=== PATIENT | male | born 1980 | race Caucasian/White ===

== ENCOUNTER 2017-03-23 14:37 | Emergency (ER) | payer OTHER ==
[2017-03-23] MEDS: ASPIRIN 81 MG CHEW TAB PO ONE (15:00)
[2017-03-23 15:03] LABS: EOSINOPHILS % 4.2 % (0.0-6.8); MEAN CORPUSCULAR VOLUME 92.9 fl (80.0-100.0); MONOCYTES % 6.3 % (0.0-11.0); NEUTROPHILS # 3.7 # k/uL (1.4-7.7)
--- NOTE | 2017-03-23 15:14 | Diagnostic Imaging Report ---
EDGAR ALANIZ [facility] [address] [facility] [address] [address] Report Submission Date: Mar 23, 2017 3:06:34 PM CDT Patient Study Name: SELVIN CR Date: Mar 23, 2017 2:50:46 PM CDT Modality Type: CR Gender: M Description: CHEST : 78 Institution: [facility] Physician: EDGAR ALANIZ Examination: Portable chest History: Chest discomfort Comparison exam: None available Findings: Single view of the chest demonstrates a normal cardiac and mediastinal silhouette. Lung miles without focal infiltrate. No effusion. Osseous structures are appropriate for age. Impression: No acute pulmonary process. Electronically signed on Mar 23, 2017 3:06:34 PM CDT by: Timothy DOWNING
[2017-03-23 15:20] LABS: eGFR (African) > 60; eGFR (Non-African) > 60
--- NOTE | 2017-03-23 15:26 | ED Physician Documentation ---
General Adult - HISTORIAN Historian: patient - HPI Stated Complaint: chest pain Chief Complaint: General Adult Onset: hours Timing: still present Severity: mild Further Comments: yes (Pt is a 36 yo male who had some pain in his L chest earlier today while eating. Pt also had mild tingling in his L arm, and slight sob. Pt says he may have had heartburn and not nausea. Pt says he suffers from anxiety, but is not tx'd for this. He has not seen his doctor for 3 yrs.) - ROS CONST: other (anxiety) EYES/ENT: none CVS/RESP: chest pain, shortness of breath GI/: other (heartburn) MS/SKIN/LYMPH: none - PAST HX Past History: other (anxiety) Allergies/Adverse Reactions: Allergies Allergy/AdvReac Type Severity Reaction Status Date / Time No Known Allergies Allergy Verified 03/23/17 14:50 Home Medications: Ambulatory Orders Medication Instructions Recorded NK [NK] 03/23/17 - SOCIAL HX Smoking History: cigarettes Alcohol Use: occasionally Drug Use: none - FAMILY HX Family History: No - VITAL SIGNS Vital Signs: Vital Signs Temp Pulse Resp BP Pulse Ox 80 20 149/87 99 03/23/17 14:50 03/23/17 14:50 03/23/17 14:50 03/23/17 14:50 - REVIEWED ASSESSMENTS Nursing Assessment Reviewed: Yes Vitals Reviewed: Yes Progress - Progress Progress: ASA 325 mg po x 1 SBP 148-->118 in course of ER visit w/o tx. Pt will f/u with pcp re: anxiety. - EKG/XRAY/CT EKG: NSR (HR=77; normal AL interval; normal axis.) XRAY: chest (neg) ED Results Lab/Radiology - Lab Results Lab Results: Lab Results 03/23/17 03/23/17 03/23/17 14:55 14:55 14:55 WBC 6.30 K/ul K/ul (4.00-12.00) RBC 4.50 M/ul M/ul (3.90-5.20) Hgb 13.9 g/dL g/dL (12.0-18.0) Hct 41.8 % % (37.0-53.0) MCV 92.9 fl fl (80.0-100.0) MCH 31.0 pg pg (28.0-34.0) MCHC 33.4 g/dL g/dL (30.0-36.0) RDW 12.4 % % (11.3-14.3) Plt Count 252 K/mm3 K/mm3 (130-400) Neut % (Auto) 57.8 % % (39.0-79.0) Lymph % (Auto) 27.5 % % (16.0-50.0) Ector % (Auto) 6.3 % % (0.0-11.0) Eos % (Auto) 4.2 % % (0.0-6.8) Baso % (Auto) 1.0 (0.0-1.5) Neut # (Auto) 3.7 # k/uL # k/uL (1.4-7.7) Lymph # (Auto) 1.7 # k/uL # k/uL (0.6-4.0) Ector # (Auto) 0.4 # k/uL # k/uL (0.0-0.9) Eos # (Auto) 0.3 # k/uL # k/uL (0.0-0.6) Baso # (Auto) 0.1 # k/uL # k/uL (0.0-0.5) Reactive Lymphs % 3.3 % % (0.0-5.0) Reactive Lymphs # 0.2 # k/uL # k/uL (0.0-0.8) D-Dimer 130 ng/mL ng/mL (6.0-682) Sodium 136 mmol/L L mmol/L (137-145) Potassium 4.0 mmol/L mmol/L (3.5-5.1) Chloride 101 mmol/L mmol/L (98-107) Carbon Dioxide 29 mmol/L mmol/L (22-30) BUN 11 mg/dL mg/dL (9-20) Creatinine 0.90 mg/dL mg/dL (0.66-1.25) Estimated Creat Clear 151 Est GFR ( Amer) > 60 (60 - ) Est GFR (Non-Af Amer) > 60 (60 - ) Glucose 95 mg/dL mg/dL (74-106) Calcium 8.4 mg/dL mg/dL (8.4-10.2) Total Bilirubin 0.1 mg/dL L mg/dL (0.2-1.3) AST 36 U/L U/L (15-46) ALT 38 U/L U/L (13-69) Alkaline Phosphatase 49 U/L U/L (38-126) Creatine Kinase 222 U/L H U/L (55-170) CK-MB (CK-2) 1.9 ng/mL ng/mL (0.0-5.6) Total Protein 6.7 g/dL g/dL (6.3-8.2) Albumin 3.7 g/dL g/dL (3.5-5.0) - Orders Orders: ED Orders Category Date Time Status Continuous EKG monitoring Q30M Care 03/23/17 14:51 Active Continuous Pulse Oximetry Q30M Care 03/23/17 14:51 Active CHEST 1 VIEW [RAD] Stat Exams 03/23/17 14:51 Completed CBC/PLATELET/DIFF Routine Lab 03/23/17 14:55 Completed CKMB Stat Lab 03/23/17 14:55 Completed CMP Routine Lab 03/23/17 14:55 Completed CREATINE KINASE Routine Lab 03/23/17 14:55 Completed D DIMER Stat Lab 03/23/17 14:55 Completed Aspirin Med 03/23/17 14:51 Discontinued 324 mg PO NOW ONE Oxygen Daily Oxygen 03/23/17 15:00 Ordered EKG WITH COMPARISON Stat Ther 03/23/17 14:51 Ordered General Adult Physical Exam - PHYSICAL EXAM GENERAL APPEARANCE: moderate distress (appears anxious) EENT: pharynx normal NECK: normal inspection, supple RESPIRATORY: no resp distress, chest non-tender, breath sounds normal CVS: reg rate & rhythm, heart sounds normal ABDOMEN: soft, no organomegaly, normal bowel sounds BACK: normal inspection, no CVA tenderness SKIN: warm/dry, normal color EXTREMITIES: non-tender, normal range of motion, no evidence of injury NEURO: oriented X3, motor nml, sensation nml Discharge Clincal Impression: Non-cardiac chest pain, possible anxiety Condition: Good Disposition: 01 HOME, SELF-CARE Decision to Admit: NO Decision Time: 15:25
[2017-03-23 15:36] VITALS: BP 124/83
== END 2017-03-23 15:32 | disposition home or self-care (01) ==
LOC: ED 14:37
DX: R07.89 Other chest pain (principal)
CPT/HCPCS: 71010; 80053; 82550; 82553; 85025; 85379; 99283; S1016